=== PATIENT | female | born 1990 | race Caucasian/White ===

== ENCOUNTER 2020-08-03 16:43 | Outpatient (RCR) | payer OTHER, SELFPAY ==
[2020-08-03 17:47] LABS: Beta HCG Quantitative < 2.39 mIU/ML
== END 2020-11-01 23:59 | disposition home or self-care (01) ==
LOC: ANHLAB 16:43
PROVIDERS: Visit Provider Obstetrics & Gynecology
DX: O20.0 Threatened abortion (principal); Z3A.00 Weeks of gestation of pregnancy not specified
CPT/HCPCS: 36415; 84702; 85461

== ENCOUNTER 2020-09-13 14:58 | Outpatient (RCR) | payer OTHER, SELFPAY ==
[2020-09-09 17:17] LABS: Beta HCG Quantitative 140.87 mIU/ML
[2020-09-11 12:13] LABS: Beta HCG Quantitative 177.15 mIU/ML
[2020-09-13 15:52] LABS: Beta HCG Quantitative 206.97 mIU/ML
== END 2020-12-08 23:59 | disposition home or self-care (01) ==
LOC: ANHLAB 14:58
PROVIDERS: Visit Provider Obstetrics & Gynecology
DX: O20.0 Threatened abortion (principal); Z3A.00 Weeks of gestation of pregnancy not specified
CPT/HCPCS: 36415; 84702

== ENCOUNTER 2020-09-15 15:47 | Outpatient (RCR) | payer OTHER, SELFPAY | END 2020-12-14 23:59 | disposition home or self-care (01) | LOC: ANHLAB 15:47 | PROVIDERS: Visit Provider Obstetrics & Gynecology | DX: O20.0 Threatened abortion (principal); Z3A.00 Weeks of gestation of pregnancy not specified | CPT/HCPCS: 36415; 84702 ==

== ENCOUNTER 2020-09-17 09:03 | Outpatient (CLI) | payer OTHER, SELFPAY ==
[2020-09-17 09:19] LABS: Basophils Absolute Auto 0.1 K/mm3 (0.0-0.1); Basophils Percent Auto 0.7 % (0.2-1.2); Eosinophils Absolute Auto 0.1 K/mm3 (0-0.3); Eosinophils Percent Auto 1.1 % (0-4.4); Hematocrit 41.3 % (37.0-47.0); Hemoglobin 13.8 g/dL (12.0-15.0); Immature Granulocyte Absolute 0.06 K/mm3 (0.00-0.031); Immature Granulocyte Percent A 0.7 % (0-0.5); Lymphocytes Absolute Auto 2.75 K/mm3 (0.9-3.2); Lymphocytes Percent Auto 32.5 % (18.3-44.2); Mean Corpuscular HGB Conc 33.4 g/dl (32-36); Mean Corpuscular Hemoglobin 28.4 pg (26-34); Mean Platelet Volume 10.7 fl (7.4-10.4); Monocytes Absolute Auto 0.6 K/mm3 (0.1-0.6); Monocytes Percent Auto 7.3 % (2.6-8.5); Neutrophils Absolute Auto 4.9 K/mm3 (1.3-6.7); Neutrophils Percent Auto 57.7 % (45.5-73.1); Platelet Count Result 197 k/mm3 (150-375); Red Blood Count 4.86 M/mm3 (4.2-5.4); Red Cell Distribution Width 12.1 % (11.5-14.5); White Blood Count 8.5 K/mm3 (4.5-10.0)
[2020-09-17 09:32] LABS: Alanine Aminotransferase 20 U/L (4-35); Albumin Level 3.9 g/dL (3.5-5.1); Alkaline Phosphatase 67 U/L (38-126); Anion Gap 5 mmol/L (8-16); Aspartate Amino Transferase 25 U/L (14-36); Bilirubin,Total 0.6 mg/dL (0.2-1.3); Blood Urea Nitrogen 8 mg/dL (7-17); Calcium 9.7 mg/dL (8.4-10.2); Carbon Dioxide 30 mmol/L (22-30); Chloride 103 mmol/L (98-107); Estimated Glomerular Filt Rate > 60; Glucose 86 mg/dL (65-110); Potassium 4.1 mmol/L (3.4-5.0); Sodium 138 mmol/L (137-145)
[2020-09-17 09:47] LABS: Beta HCG Quantitative 342.75 mIU/ML
== END 2020-09-17 09:04 | disposition home or self-care (01) ==
PROVIDERS: Visit Provider Obstetrics & Gynecology
DX: O00.90 Unspecified ectopic pregnancy without intrauterine pregnancy (principal); Z3A.00 Weeks of gestation of pregnancy not specified
CPT/HCPCS: 36415; 80053; 84702; 85025

== ENCOUNTER 2020-09-23 16:06 | Outpatient (CLI) | payer OTHER, SELFPAY ==
--- NOTE | ~2020-09-23 | US_ITS ---
EXAMINATION: US OB <= 14 weeks fetus DATE: 09/23/2020 16:42 INDICATION: Patient status post medical treatment of right-sided ectopic TECHNIQUE: Real-time pelvic transabdominal and transvaginal ultrasound was performed. COMPARISON: None. FINDINGS: The uterus measures 10.8 x 6.5 x 4.4 cm. The endometrial complex measures 10 mm. The right ovary measures 3.2 x 2.8 x 2.8 cm. No definite persistent ectopic is identified. The left ovary measures 1.6 x 1.6 x 1.8 cm. There is normal vascular flow in the ovaries. There is no free flu id in the pelvis. IMPRESSION: 1. No definite persistent ectopic identified. Reviewed, dictated and finalized at location A.
== END 2020-09-23 16:07 | disposition home or self-care (01) ==
PROVIDERS: Visit Provider Obstetrics & Gynecology
DX: O00.90 Unspecified ectopic pregnancy without intrauterine pregnancy (principal); Z3A.00 Weeks of gestation of pregnancy not specified
CPT/HCPCS: 76801

== ENCOUNTER 2020-10-01 11:13 | Outpatient (RCR) | payer OTHER, SELFPAY ==
[2020-09-20 17:23] LABS: Beta HCG Quantitative 210.03 mIU/ML
[2020-09-23 12:46] LABS: Beta HCG Quantitative 307.88 mIU/ML
[2020-10-01 12:33] LABS: Beta HCG Quantitative 98.63 mIU/ML
== END 2020-12-19 23:59 | disposition home or self-care (01) ==
LOC: ANHLAB 11:13
PROVIDERS: Visit Provider Obstetrics & Gynecology
DX: O00.90 Unspecified ectopic pregnancy without intrauterine pregnancy (principal); Z3A.00 Weeks of gestation of pregnancy not specified
CPT/HCPCS: 36415; 84702

== ENCOUNTER 2021-06-17 12:27 | Outpatient (CLI) | payer OTHER, SELFPAY | END 2021-06-17 12:28 | disposition home or self-care (01) | LOC: ANHLAB 12:32 | PROVIDERS: Visit Provider Obstetrics & Gynecology | DX: N91.2 Amenorrhea, unspecified (principal) | CPT/HCPCS: 36415; 84702 ==

== ENCOUNTER 2021-06-19 08:21 | Emergency (ER) | payer OTHER, SELFPAY ==
--- NOTE | ~2021-06-19 | US_ITS ---
EXAMINATION: US OB <=14 wk fetus w TV DATE: 06/19/2021 10:28 INDICATION: Left lower quadrant abdominal pain during first trimester of . TECHNIQUE: Real-time pelvic ultrasound utilizing both a transvaginal and transabdominal probe was pe rformed. The interpreting radiologist was not present for the study. COMPARISON: None. FINDINGS: The uterus measures 9.5 x 5.5 x 5.9 cm. Endometrial complex measures9 mm in thickness. No intrauteri ne gestational sac identified.There are few subcentimeter anechoic nabothian cysts at the cervix. The right ovary measures 2.9 x 1.4 x 1.3 cm. There is a bilobed anechoic cyst without evident interna l septations or solid soft tissue component at the right adnexa with component measuring approximatel y 1.5 cm and 1.1 cm in maximal diameter. The cystic lesion abuts the right ovary. The left ovary marcos ures 3.9 x 2.4 x 1.9 cm. 1.4 cm thick-walled centrally anechoic corpus luteum cyst at the left ovary along with a couple additional subcentimeter anechoic left ovarian cysts/follicles. Vascular flow adonay ntified in both ovaries on color Doppler. There is no free fluid in the pelvis. IMPRESSION: 1. No intrauterine gestational sac. Differential includes early , failed or ectopi c . Recommend follow-up with serial beta-hCG levels and repeat imaging as clinically indicat ed. 2. Bilateral likely adnexal cysts as detailed above. Reviewed, dictated and finalized at location A. IMPRESSION: 1. No intrauterine gestational sac. Differential includes early , fail ed or ectopic . Recommend follow-up with serial beta-hCG lev els and repeat imaging as clinically indicated. 2. Bilateral likely adnexal cysts as detailed above.
[2021-06-19 08:29] VITALS: BP 129/81; PULSE 68; RESP 18; TEMP 36.9; O2SAT 99
--- NOTE | 2021-06-19 09:10 | ED.PREGNANCY ---
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 Patient reports having a recent home positive test. [facility] 05/19/21. States she saw her ZIPPER TRIMMER, Dr. Muniz, on Sunday at which point her beta-hCG was 368. Patient has a history of ectopic 1 year ago. She was told if she developed pain on either side of her abdomen to come to the emergency room. Patient reports having slight pain in her left-sided abdomen/flank on Sunday which became worse today. She has not tried anything for the pain. She has had some intermittent nausea since finding out she was , but denies any vomiting, fever, chills, vaginal bleeding, chest pain, shortness of breath, urinary symptoms. <SATURNINO Garcia Last Filed: 06/19/21 17:11> Related Data Allergies/Adverse reactions: Allergies Allergy/AdvReac Type Severity Reaction Status Date / Time Penicillins Allergy Intermediate rash Verified 06/19/21 08:33 amoxicillin Allergy Hives Verified 06/19/21 08:33 RED DYE 40 Allergy Intermediate HIVES, Uncoded 06/19/21 08:33 FEVER <SATURNINO Garcia Last Filed: 06/19/21 17:11> Review of Systems Review of Systems: CONSTITUTIONAL: Denies fever, chills. CARDIOVASCULAR: Denies chest pain. RESPIRATORY: Denies dyspnea. GASTROINTESTINAL: Reports L sided ABD pain, nausea. Denies vomiting, or diarrhea. GENITOURINARY: Denies vaginal bleeding, dysuria, or hematuria. SKIN: Denies rash or itching. MUSCULOSKELETAL: Reports L flank pain. Denies joint pain, or myalgia. <Salena Patel PA-C - Last Filed: 06/19/21 17:11> All systems reviewed & are unremarkable except as noted in HPI and below <Salena Patel PA-C - Last Filed: 06/19/21 17:11> PMFSH Past Medical History Medical History: Medical History (Updated 06/19/21 @ 17:02 by Salena Patel PA-C) History of ectopic <Salena Patel PA-C - Last Filed: 06/19/21 17:11> Surgical History Surgical History: Surgical History (Updated 06/19/21 @ 17:02 by Salena Patel PA-C) No pertinent past surgical history <Salena Patel PA-C - Last Filed: 06/19/21 17:11> Social History Social History: Social History (Updated 06/19/21 @ 17:02 by Salena Patel PA-C) Smoking status: Never smoker <Salena Patel PA-C - Last Filed: 06/19/21 17:11> Exam Narrative: GENERAL: Well appearing, well-nourished, non-toxic, in no acute distress. HEAD: Normocephalic, atraumatic. NECK: Supple. No adenopathy, no masses. RESPIRATORY: Airway patent, respirations nonlabored. Clear to auscultation bilaterally, no rales, rhonchi, wheezing. CARDIOVASCULAR: Regular rate and rhythm without murmurs, rubs, or gallops. Radial pulses 2+ and equal bilaterally. ABDOMINAL: Soft, minimal L lateral abdominal tenderness to palpation, no tenderness in LLQ/RLQ/suprapubic region, no rebound/guarding, nondistended, no hepatosplenomegaly. Normoactive BS. Minimal L CVA tenderness to percussion. MUSCULOSKELETAL: Moves all extremities. Strength/ROM intact without gross deformities. SKIN: Warm, dry, normal color. No rashes. NEURO: A&O X3. Speech clear. Cranial nerves II-XII grossly intact. Steady gait. No ataxic movements. PSYCHIATRIC: Appropriate mood and affect. Normal interaction. 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
[2021-06-19 09:32] LABS: Basophils Percent Auto 0.6 % (0.2-1.2); Eosinophils Absolute Auto 0.1 K/mm3 (0-0.3); Eosinophils Percent Auto 0.8 % (0-4.4); Hematocrit 45.3 % (37.0-47.0); Hemoglobin 15.1 g/dL (12.0-15.0); Immature Granulocyte Absolute 0.05 K/mm3 (0.00-0.031); Immature Granulocyte Percent A 0.7 % (0-0.5); Lymphocytes Absolute Auto 2.26 K/mm3 (0.9-3.2); Lymphocytes Percent Auto 31.6 % (18.3-44.2); Mean Corpuscular HGB Conc 33.3 g/dl (32-36); Mean Corpuscular Hemoglobin 28.4 pg (26-34); Mean Corpuscular Volume 85.3 fl (80-100); Mean Platelet Volume 11.2 fl (7.4-10.4); Monocytes Absolute Auto 0.4 K/mm3 (0.1-0.6); Monocytes Percent Auto 6.1 % (2.6-8.5); Neutrophils Absolute Auto 4.3 K/mm3 (1.3-6.7); Neutrophils Percent Auto 60.2 % (45.5-73.1); Platelet Count Result 152 k/mm3 (150-375); Red Blood Count 5.31 M/mm3 (4.2-5.4); Red Cell Distribution Width 12.1 % (11.5-14.5); White Blood Count 7.2 K/mm3 (4.5-10.0)
[2021-06-19 09:41] LABS: Alanine Aminotransferase 14 U/L (4-35); Albumin Level 3.9 g/dL (3.5-5.1); Alkaline Phosphatase 66 U/L (38-126); Anion Gap 7 mmol/L (8-16); Aspartate Amino Transferase 21 U/L (14-36); Bilirubin,Total 0.5 mg/dL (0.2-1.3); Blood Urea Nitrogen 9 mg/dL (7-17); Calcium 8.5 mg/dL (8.4-10.2); Carbon Dioxide 23 mmol/L (22-30); Chloride 108 mmol/L (98-107); Estimated CRCL calculation 109 ml/min; Estimated Glomerular Filt Rate > 60; Glucose 101 mg/dL (65-110); Potassium 3.9 mmol/L (3.4-5.0); Sodium 138 mmol/L (137-145)
[2021-06-19 09:47] LABS: Add Urine Microscopic? YES; Appearance Urine Cloudy (Clear); Bacteria Urine Trace /hpf; Bilirubin Urine Negative (Negative); Blood Urine Negative (Negative); Color Urine Yellow (Yellow); Glucose Urine UA Negative (Negative); Ketones Urine Negative (Negative); Leukocyte Esterase Ur Negative LEU/UL (Negative); Mucus Urine Rare /lpf; Nitrate Urine Negative (Negative); Protein Urine Negative (Negative); Specific Grav Ur 1.023 (1.001-1.035); Squamous Epithelial Cell Urine Occasional /hpf (Few); Urobilinogen Urine Negative mg/dL (<2.0); WBC Urine 0-3 /hpf
--- NOTE | 2021-06-19 10:00 | PC.NURSE ---
Pt to U/S via w/c at this time.
[2021-06-19 10:19] VITALS: BP 132/89; PULSE 66; RESP 18; O2SAT 99
[2021-06-19 11:59] VITALS: BP 107/65; PULSE 67; RESP 15; O2SAT 99
== END 2021-06-19 12:00 | disposition home or self-care (01) ==
PROVIDERS: Physician Assistant; Emergency Provider Emergency Medicine
DX: O26.891 Other specified pregnancy related conditions, first trimester (principal); R10.9 Unspecified abdominal pain; O09.11 Supervision of pregnancy with history of ectopic pregnancy, first trimester; Z3A.01 Less than 8 weeks gestation of pregnancy
CPT/HCPCS: 36415; 76801; 76817; 80053; 81001; 84702; 85025; 99284

== ENCOUNTER 2022-02-20 04:31 | Inpatient (IN) | payer OTHER, SELFPAY ==
[2022-02-20] VITALS (77 sets, daily range): BP systolic 100–134; BP diastolic 55–88; PULSE 66–114; TEMP 36.5–36.9; O2SAT 97–99; BMI 38.5
[2022-02-20] MEDS: DINOPROSTONE 10 MG VAG INSERT VAGINAL ×2 (05:52→19:30)
[2022-02-20 06:02] LABS: Basophils Absolute Auto 0.1 K/mm3 (0.0-0.1); Basophils Percent Auto 0.4 % (0.2-1.2); Eosinophils Absolute Auto 0.1 K/mm3 (0-0.3); Eosinophils Percent Auto 0.8 % (0-4.4); Hematocrit 36.7 % (37.0-47.0); Hemoglobin 12.1 g/dL (12.0-15.0); Immature Granulocyte Absolute 0.15 K/mm3 (0.00-0.031); Immature Granulocyte Percent A 1.3 % (0-0.5); Lymphocytes Percent Auto 26.7 % (18.3-44.2); Mean Corpuscular Hemoglobin 27.9 pg (26-34); Mean Corpuscular Volume 84.6 fl (80-100); Mean Platelet Volume 12.4 fl (7.4-10.4); Monocytes Percent Auto 8.7 % (2.6-8.5); Neutrophils Percent Auto 62.1 % (45.5-73.1); Platelet Count Result 121 k/mm3 (150-375); Red Blood Count 4.34 M/mm3 (4.2-5.4); White Blood Count 11.2 K/mm3 (4.5-10.0)
--- NOTE | 2022-02-20 06:25 | LDADM ---
This patient, Radha Aparicio, was admitted to Labor/Delivery/Recovery 105 on 02/20/22 at 04:31. Plans for labor, pain management and were discussed with patient. Patient/family oriented to hospital policies and general routines including ID bracelet, bed and alarms, visiting hours, pain management, procedures, bathroom and other care routines, personal items, smoking policy, room service/diet and guest tray routines, security routines, and visiting hours. Patient/Family are encouraged to report perceived risks to care and to ask questions if they do not understand what they are told or what they should do. See OBIX for further documentation.
--- NOTE | 2022-02-20 06:44 | WPDANESEPP ---
Anes - Eval Pre Procedure Procedure: labor epidural Date/Time: 02/20/22 06:44 Surgeon: jessica Preop Diagnosis: pain during labor Pre Op Diagnosis: IOL Patient Data Age: 31 Gender: F Height: 1.65 m Weight: 105 kg Last Vital Signs Pulse 74 02/20/22 06:31 BP 119/76 02/20/22 06:31 Allergies Allergy/AdvReac Type Severity Reaction Status Date / Time Penicillins Allergy Intermediate rash Verified 01/25/22 13:24 amoxicillin Allergy Hives Verified 01/25/22 13:24 RED DYE 40 Allergy Intermediate HIVES, Uncoded 01/25/22 13:24 FEVER Home Medications Medication Instructions Recorded Confirmed Type aspirin 81 mg tablet,delayed 81 mg PO DAILY 01/25/22 01/25/22 History release (Lani Low Dose Aspirin) prenat.vits,edmund,ulq-kfsg-cytkt 1 tablet PO DAILY 01/25/22 01/25/22 History Laboratory Tests 02/20/22 02/20/22 05:48 05:48 WBC 11.2 K/mm3 H K/mm3 (4.5-10.0) RBC 4.34 M/mm3 M/mm3 (4.2-5.4) Hgb 12.1 g/dL D g/dL (12.0-15.0) Hct 36.7 % L % (37.0-47.0) MCV 84.6 fl fl (80-100) MCH 27.9 pg pg (26-34) MCHC 33.0 g/dl g/dl (32-36) RDW 14.0 % % (11.5-14.5) Plt Count 121 k/mm3 L k/mm3 (150-375) MPV 12.4 fl H fl (7.4-10.4) Immature Gran % (Auto) 1.3 % H % (0-0.5) Neut % (Auto) 62.1 % % (45.5-73.1) Lymph % (Auto) 26.7 % % (18.3-44.2) Thayer % (Auto) 8.7 % H % (2.6-8.5) Eos % (Auto) 0.8 % % (0-4.4) Baso % (Auto) 0.4 % % (0.2-1.2) Lymph # (Auto) 3.00 K/mm3 K/mm3 (0.9-3.2) Thayer # (Auto) 1.0 K/mm3 H K/mm3 (0.1-0.6) Eos # (Auto) 0.1 K/mm3 K/mm3 (0-0.3) Baso # (Auto) 0.1 K/mm3 K/mm3 (0.0-0.1) Abs Immat Gran (auto) 0.15 K/mm3 H K/mm3 (0.00-0.031) Absolute Neuts (auto) 7.0 K/mm3 H K/mm3 (1.3-6.7) Absolute Nucleated RBC 0.0 K/mm3 K/mm3 (0.0-0.012) Nucleated RBC % 0.0 % % (0.0-0.2) RPR Pending Patient hx anesthesia problems: none Family hx anesthesia problems: none Results Review: All pre-operative results and documents have been reviewed as part of the pre-operative evaluation. [facility] Past Medical History Medical History (Updated 02/20/22 @ 06:45 by Yuliya Bell CRNA) History of ectopic IUP (intrauterine ), incidental Obesity (BMI 30-39.9) Surgical History Surgical History (Updated 06/19/21 @ 17:02 by Salena Waldrop PA-C) No pertinent past surgical history Family History Family History (Updated 01/25/22 @ 13:27 by Valentín William RN) Mother Asthma Sibling Diabetes mellitus Autism Social History Social History (Updated 06/19/21 @ 17:02 by Salena Waldrop PA-C) Smoking status: Never smoker Second hand tobacco smoke exposure: No Substance use: never Lack of Transportation: No Lack of Food: Never True Current Housing: I Have Housing Concerned About Future Housing: No Difficulty Paying Gas/Electric Bills: No Difficulty Paying for Meds: No Currently Unemployed: No Education: Associate Degree Difficulty w/ Childcare or Family Care: No Spiritual care concerns: No Exam Day of Procedure 02/20/22 06:44
--- NOTE | 2022-02-20 08:59 | WPDHPUPDATE1 ---
History and Physical Update Update Date/Time: 02/20/22 08:59This patient is a 31-year-old multiparous female at 39 weeks gestation who presents for induction of labor. It is selection induction of labor. We have elected to start with Cervidil. She has a mildly unfavorable cervix. There was reassuring status. Expected management. History and Physical has been reviewed, including an updated exam of the patient. There are NO changes in the patient's condition. Risks, benefits, and alternatives have been discussed and questions answered. Patient agrees to proceed with procedure.
[2022-02-21] VITALS (110 sets, daily range): BP systolic 86–140; BP diastolic 42–100; PULSE 77–136; RESP 18; TEMP 36.4–38.1; O2SAT 96–100
[2022-02-21] MEDS: LACTATED RINGERS 1,000 ML 125 ML IV CONT ×2 (08:26→09:05)
[2022-02-21] MEDS: OXYTOCIN 30 UNITS/NS 500 ML 30 UNITS/500 ML BAG IV CONT (08:26)
[2022-02-21 11:28] LABS: Rapid Plasma Reagin Non-Reactive (NonReactive)
--- NOTE | 2022-02-21 19:39 | PM.OBPRVD ---
OB - Delivery Note Procedure Delivery date: 02/21/22 Procedure: Events: Other Intrapartal Events: Other Delivery monitor: External FHT and Internal Uterine Route of delivery: Episiotomy description: None Laceration Description: Periurethral and Vaginal Delivery repair: vicryl Quantitative Blood Loss (ml): 328 Anesthesia type: Epidural [place] Baby Date of : 02/21/22 Weeks of gestation at delivery: 39 gender: Male Weight (pounds): 9 Weight (ounces): 13 score one minute: 9 score five minutes: 9
[2022-02-21] MEDS: ACETAMINOPHEN 500 MG TABLET 1000 MG PO (19:40)
--- NOTE | 2022-02-21 21:23 | ADMGEN ---
This patient, Radha Aparicio, was admitted to OB 2nd Floor Room 285-00. Patient/family oriented to hospital policies and general routines including ID bracelet, bed and alarms, visiting hours, pain management, procedures, bathroom and other care routines, personal items, smoking policy, room service/diet, and visiting hours. Information on how to activate the Rapid Response Team has been discussed. Patient/Family are encouraged to report perceived risks to care and to ask questions if they do not understand what they are told or what they should do.
[2022-02-21] MEDS: LANOLIN (LANSINOH) 7.5 GM CREAM 1 APPLIC TOPICAL (23:31)
[2022-02-21] MEDS: WITCH HAZEL 40 PADS 1 PAD TOPICAL (23:31)
[2022-02-21] MEDS: BENZOCAINE 20% AER SPR (*SP) 56 GM CAN 1 SPRAY TOPICAL (23:31)
[2022-02-22] VITALS: BP 123/72; PULSE 111; RESP 18; TEMP 37.1
[2022-02-22 05:45] VITALS: BP 123/83; PULSE 99; RESP 18; TEMP 36.9
[2022-02-22 06:16] LABS: Hematocrit 34.5 % (37.0-47.0); Hemoglobin 11.2 g/dL (12.0-15.0)
--- NOTE | 2022-02-22 07:47 | PM.OBPNVD ---
OB - PN: Subj Subjective Date/time seen: 02/22/22 07:47 s/p vaginal delivery OB - PN: Obj Data Labs 02/22/22 06:08 Labs: Laboratory Results - last 24 hr 02/20/22 02/22/22 05:48 06:08 Hgb 11.2 L Hct 34.5 L RPR Non-reactive OB - PN A/P Plan day: 1 Plan: routine care and discharge home Time Spent With Patient Time: Total time spent is greater than 50% in coordination of care (as documented) at patient's floor/unit and/or counseling patient: Review of Systems Review of Systems: All systems reviewed & are unremarkable except as noted in HPI and below Exam Const: General: cooperative, healthy appearing and comfortable
--- NOTE | 2022-02-22 07:48 | PM.OBDSVD ---
DS: Admitting Diagnosis Discharge Date 02/22/22 Admitting Diagnosis IOL DS: Discharge Diagnosis Discharge Diagnosis (1) Vaginal delivery: Code(s): O80 - Encounter for full-term uncomplicated delivery Status: Acute OB - DS: Summary OB Procedures : None OB Procedures Intrapartum: Spontaneous Vag Delivery OB Procedures: : None Time Spent with Patient Time attestation: Total time spent providing and/or coordinating discharge services: DS: Data Data Completed and Pending Labs on day of discharge: Labs from last 24 hours 02/22/22 02/20/22 06:08 05:48 Hgb 11.2 L Hct 34.5 L RPR Non-reactive Discharge Plan Discharge Attending physician on discharge: Naomy Muniz Discharging Clinician: Citlaly Cunningham Patient Disposition: Home, Self-Care Activity: pelvic rest Diet: regular Stand Alone Forms: General Discharge Information Follow-up/Referrals: Naomy Muniz MD [Physician] - 4 Weeks Discharge Medications: New ibuprofen 600 mg Tablet 600 mg PO Q6H PRN (Reason: Cramping) Qty: 30 0RF Continued #2 Tablet 1 tablet PO DAILY Discontinued aspirin [Lani Low Dose Aspirin] 81 mg Tablet,Delayed Release (Dr/Ec) 81 mg PO DAILY Date of admission: 02/20/22 04:31 Primary Care Provider: 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
[2022-02-22 07:55] VITALS: BP 124/92; PULSE 107; RESP 18; TEMP 36.9; O2SAT 100
[2022-02-22] MEDS: IBUPROFEN 600 MG TABLET PO (09:09)
--- NOTE | 2022-02-22 09:57 | WPDANLDPN2 ---
Anes-Prog Note L&D Date/Time: 02/22/22 09:57 Comfortable throughout: labor Neuraxial method: epidural Epidural/Spinal procedure site: clean & non-tender Neuro status: Neuro function grossly intact. Cardiovascular status: normal Respiratory status: normal Airway patency: baseline Mental status: baseline Post-Op hydration status: normal Vital Signs: Last Vital Signs Temp 98.5 F 02/22/22 07:55 Pulse 107 H 02/22/22 07:55 Resp 18 02/22/22 07:55 BP 124/92 H 02/22/22 07:55 Pulse Ox 100 02/22/22 07:55 O2 Del Method Room Air 02/22/22 05:45 Pain score (VAS): 0 Patient feedback: Patient satisfied with anesthetic care.
[2022-02-22 11:40] VITALS: BP 111/84; PULSE 100; RESP 18; TEMP 36.8; O2SAT 98
[2022-02-22 16:26] VITALS: BP 112/69; PULSE 105; RESP 18; TEMP 36.8; O2SAT 98
[2022-02-22 20:00] VITALS: BP 107/78; PULSE 105; RESP 18; TEMP 37
[2022-02-23 08:10] VITALS: BP 130/80; PULSE 112; RESP 16; TEMP 37.6; O2SAT 98
[2022-02-23] MEDS: IBUPROFEN 600 MG TABLET PO (08:23)
[2022-02-23] MEDS: DOCUSATE SODIUM 100 MG CAPSULE PO (08:23)
[2022-02-23] MEDS: MULTIVIT/MIN/PREN/FOL AC/IRON TABLET 1 TAB PO (08:23)
--- NOTE | 2022-02-23 08:34 | P.DS_ITS ---
DS: Admitting Diagnosis Discharge Date 02/23/22 Admitting Diagnosis term OB - DS: Summary OB Procedures : None OB Procedures Intrapartum: Spontaneous Vag Delivery OB Procedures: : None Time Spent with Patient Time attestation: Total time spent providing and/or coordinating discharge services: Discharge Plan Discharge Attending physician on discharge: Naomy Muniz Discharging Clinician: Citlaly Cunningham Patient Disposition: Home, Self-Care Activity: pelvic rest Diet: regular Patient Instructions: Antibiotic Form Stand Alone Forms: General Discharge Information Follow-up/Referrals: Naomy Muniz MD [Physician] - 4 Weeks Discharge Medications: New ibuprofen 600 mg Tablet 600 mg PO Q6H PRN (Reason: Cramping) Qty: 30 0RF Continued #2 Tablet 1 tablet PO DAILY Discontinued aspirin [Lani Low Dose Aspirin] 81 mg Tablet,Delayed Release (Dr/Ec) 81 mg PO DAILY Date of admission: 02/20/22 04:31 Primary Care Provider: PHYSICIAN,PRODUCT EXPERT Admitting Provider: Naomy Muniz Attending physician on admission: Naomy Muniz Condition: Stable
--- NOTE | 2022-02-23 08:34 | PM.OBPNVD ---
OB - PN: Subj Subjective Date/time seen: 02/23/22 08:34 Patient comments: no complaints, pain well controlled and tolerating diet OB - PN: Obj Data Labs 02/22/22 06:08 OB - PN A/P Plan day: 2 Plan: routine care and discharge home Time Spent With Patient Time: Total time spent is greater than 50% in coordination of care (as documented) at patient's floor/unit and/or counseling patient: Exam Const: General: comfortable and no acute distress Resp: Effort & Inspection: normal respiratory effort Auscultation: no rales, no rhonchi and no wheezes Cardio: Rate: regular rate Heart sounds: no click, no murmurs and no rubs GI: GI Palp: Yes Soft to palpation and No Tenderness to palpation present (GI) Auscultation: normal bowel sounds Extrem: General: normal to inspection, no pedal edema and no calf tenderness
--- NOTE | 2022-02-23 09:00 | PC.NURSE ---
Patient viewed the discharge video Mother & Baby Care, The First Two Weeks . Patient was given the opportunity and encouraged to ask questions. Patient verbalized understanding of information shared and has been given the mother/baby guide for home reference.
[2022-02-24 10:11] VITALS: BP 126/77; PULSE 99; RESP 18; TEMP 36.9; O2SAT 98
== END 2022-02-23 11:45 | disposition home or self-care (01) | DRG 807 ==
LOC: ANHLDR 04:41 → ANHOB2 02-21 21:28
PROVIDERS: Admitting Provider Obstetrics & Gynecology; Visit Provider Obstetrics & Gynecology
DX: O77.0 Labor and delivery complicated by meconium in amniotic fluid (principal); Z37.0 Single live birth; O70.0 First degree perineal laceration during delivery; Z3A.39 39 weeks gestation of pregnancy; Z88.0 Allergy status to penicillin; Z79.82 Long term (current) use of aspirin
CPT/HCPCS: 36415; 85014; 85018; 85025; 86592; 86850; 86900; 86901; A9270; J2590; J2795; J7120